=== PATIENT | female | born 1950 | race Caucasian/White ===

== ENCOUNTER 2019-05-03 03:10 | Emergency (ER) | payer MEDICARE, OTHER ==
--- NOTE | 2019-05-03 03:18 | ED Physician Documentation ---
<Marlin Rodriguez - Last Filed: 05/03/19 07:13> History of Present Illness - Stated complaint Stated Complaint: NAUSEA/DIZZY - History obtained from History obtained from: Patient, Family - History of Present Illness Timing: How many hours ago (3) - Additonal information Additional information: This is a 69-year-old woman who presents with her complaints that she went to bed around midnight and shortly thereafter developed violent vomiting about every 15 minutes. She was feeling dizzy but did not pass out. She is very minimal headache this started after the vomiting. She did not fall. She did not hit her head. She does not have diarrhea but said that her intestines feel "off". She had wine and some chicken salad that she had made in the morning about 2 hours before the onset of the symptoms. She has had this happen multiple times in the past most recent time being about 5 years ago. Nobody ever elucidated the reasoning for these episodes. They live in the [facility] and have a [place]. Review of Systems Constitutional: denies: Fever Eyes: reports: Reviewed and negative Ears: denies: Loss of hearing Nose: denies: Rhinorrhea / runny nose, Congestion Throat: denies: Sore throat Cardiac: denies: Palpitations Respiratory: denies: Dyspnea, Cough GI: reports: Nausea, Vomiting. denies: Abdominal Pain, Diarrhea : denies: Dysuria, Frequency Skin: denies: Rash Neurologic: reports: Headache. denies: Syncope, Confused, LOC PD PAST MEDICAL HISTORY - Present Medications Home Medications: Ambulatory Orders Medication Instructions Recorded Confirmed Ondansetron Odt [Zofran] 4 mg TL Q6H PRN #10 tablet 05/03/19 - Allergies Allergies/Adverse Reactions: Allergies Allergy/AdvReac Type Severity Reaction Status Date / Time codeine Allergy Nausea Verified 05/03/19 03:22 PD ED PE NORMAL - Vitals Vital signs reviewed: Yes - General General: Alert and oriented X 3, Other (Patient was actively vomiting) - HEENT HEENT: Atraumatic, PERRL, EOMI, Moist mucous membranes - Neck Neck: Supple, no meningeal sign, No adenopathy, No JVD - Cardiac Cardiac: RRR, No murmur - Respiratory Respiratory: No respiratory distress, Clear bilaterally - Abdomen Abdomen: Soft, Non tender, Non distended, Other (Hypoactive bowel tones) - Derm Derm: Normal color, Warm and dry, No rash - Extremities Extremities: No edema - Neuro Neuro: Alert and oriented X 3, manufacturing technologist 2-12 intact, Normal speech, Other (No neurological deficit) - Psych Psych: Normal mood, Normal affect Results - EKG (time done) 0333 Rate: Rate (enter#) Rhythm: NSR, Other (Frequent PACs) QRS: Poor R wave progression Ischemia: Normal ST segments Compare to prior EKG: Old EKG unavailable Computer interpretation: Disagree with computer PD MEDICAL DECISION MAKING - ED course Complexity details: reviewed results, re-evaluated patient, d/w patient, d/w family ED course: The patient was actively vomiting when she got here. She was given Zofran. She is still feeling nauseous following that so we gave her 25 of Phenergan IV. She still complained of some nausea to the nursing staff and was given Reglan 10 mg IV. When I went back into talk to her she is complaining more of a of an akathisia just feels really antsy and I think she is reacting to the Phenergan. Will medicate with Benadryl 25 mg IV. She is not really feeling dizzy. 0611: Patient got up and ambulated in the hallway and the is concerned because she is very unsteady. He said he had to hold onto the back of her pants quite tightly. It is unclear if this is a side effect from the medications but at this point with her not improving significantly and now she is telling me that she is dizzy, I elected to order CT of the brain. Patient is in agreement with this plan. She has not had any further vomiting. 0657: CT Is negative. Patient is still feeling little dizzy but has not had any further vomiting. Will consult with neurology at [facility]. 0713: Dr Cedeño, Neurology, at [facility] recommended a CT angiogram be done here. If there is vertebral or basilar occlusion contact them. Otherwise she could be admitted here for MRI tomorrow to rule out posterior stroke. Care will be turned over to Dr. Schumacher to follow-up on the CT angiogram a decision about admission. Departure - Departure Disposition: 01 Home, Self Care Clinical Impression: Gastroenteritis Instructions: ED Gastroenteritis Vs Food Poison Follow-Up: REMEDIOS ESCOBEDO MD [Primary Care Provider] - Prescriptions: Ondansetron Odt [Zofran] 4 mg TL Q6H PRN #10 tablet PRN Reason: Nausea / Vomiting <Meet Schumacher - Last Filed: 05/03/19 08:42> Results - Vitals Vitals: Vital Signs - 24 hr 05/03/19 05/03/19 05/03/19 03:14 03:31 03:55 Temperature 35.8 C L Heart Rate 146 H 99 89 Respiratory 14 20 Rate Blood Pressure 144/82 H 141/97 H O2 Saturation 98 97 96 05/03/19 05/03/19 05/03/19 04:24 06:08 06:32 Temperature 36.6 C Heart Rate 76 79 81 Respiratory 18 18 21 Rate Blood Pressure 148/85 H 120/74 114/69 O2 Saturation 96 97 97 Oxygen O2 Source Room air - Labs Labs: Laboratory Tests 05/03/19 05/03/19 05/03/19 03:26 03:26 03:26 WBC 6.3 RBC 4.45 Hgb 13.4 Hct 41.5 MCV 93.3 MCH 30.1 MCHC 32.3 RDW 13.2 Plt Count 180 MPV 11.3 H Neut # (Auto) 4.0 Lymph # (Auto) 1.5 Weston # (Auto) 0.5 Eos # (Auto) 0.2 Baso # (Auto) 0.1 Absolute Nucleated RBC 0.00 Nucleated RBC % 0.0 PT 12.1 INR 1.1 Sodium 143 Potassium 3.4 L Chloride 104 Carbon Dioxide 24 Anion Gap 15.0 H BUN 15 Creatinine 0.7 Estimated GFR (MDRD) 83 L Glucose 137 H Calcium 9.4 Total Bilirubin 0.8 AST 34 ALT 22 Alkaline Phosphatase 64 Troponin I Total Protein 7.7 Albumin 4.9 Globulin 2.8 Albumin/Globulin Ratio 1.8 Lipase 33 Urine Color Urine Clarity Urine pH Ur Specific Chestnut Urine Protein Urine Glucose (UA) Urine Ketones Urine Occult Blood Urine Nitrite Urine Bilirubin Urine Urobilinogen Ur Leukocyte Esterase Ur Microscopic Review Urine Culture Comments 05/03/19 05/03/19 03:26 04:20 WBC RBC Hgb Hct MCV MCH MCHC RDW Plt Count MPV Neut # (Auto) Lymph # (Auto) Weston # (Auto) Eos # (Auto) Baso # (Auto) Absolute Nucleated RBC Nucleated RBC % PT INR Sodium Potassium Chloride Carbon Dioxide Anion Gap BUN Creatinine Estimated GFR (MDRD) Glucose Calcium Total Bilirubin AST ALT Alkaline Phosphatase Troponin I < 0.04 Total Protein Albumin Globulin Albumin/Globulin Ratio Lipase Urine Color YELLOW Urine Clarity CLEAR Urine pH 7.0 Ur Specific Chestnut 1.010 Urine Protein NEGATIVE Urine Glucose (UA) 100 H Urine Ketones NEGATIVE Urine Occult Blood NEGATIVE Urine Nitrite NEGATIVE Urine Bilirubin NEGATIVE Urine Urobilinogen 0.2 (NORMAL) Ur Leukocyte Esterase NEGATIVE Ur Microscopic Review NOT INDICATED Urine Culture Comments NOT INDICATED PD MEDICAL DECISION MAKING - ED course ED course: CT angios of the head and neck are negative for large vessel occlusion and the patient's symptoms are resolved. She gives a history of having similar episodes previously with complete recovery. She did eat some chicken salad last night that she had prepared she had mayonnaise as a portion of the dressing and her did have a spoonful of the salad. She became violently ill consistent with staphylococcal food poisoning and her illness now appears resolved consistent with staphylococcal food poisoning. She has been hydrated here in the emergency department. At the time of my evaluation at 8:40 AM the patient is ambulating without difficulty and has no nausea or symptoms. I believe her episode is resolved. I do not believe she needs to be admitted to the hospital for further work-up. She will be discharged to follow-up with her primary care doctor in [place].
[2019-05-03] MEDS ORDERED: ONDANSETRON 4 MG/2 ML VIAL IVP STA (03:24)
[2019-05-03] MEDS ORDERED: SODIUM CHLORIDE 0.9% 1,000 ML IV ONE (03:25)
[2019-05-03 03:32] LABS: BASOPHILS # (AUTO) 0.1 10^3/uL (0.0-0.1); BASOPHILS % (AUTO) 1.3 %; EOSINOPHILS # (AUTO) 0.2 10^3/uL (0.0-0.7); EOSINOPHILS % (AUTO) 2.7 %; HGB - HEMOGLOBIN 13.4 g/dL (12.0-16.0); LYMPHOCYTES # (AUTO) 1.5 10^3/uL (1.5-3.5); LYMPHOCYTES % (AUTO) 24.3 %; MEAN CORPUSCULAR HEMOGLOBIN 30.1 pg (27.0-31.0); MEAN CORPUSCULAR HGB CONC 32.3 g/dL (32.0-36.0); MEAN CORPUSCULAR VOLUME 93.3 fL (81.0-99.0); MEAN PLATELET VOLUME 11.3 fL (7.9-10.8); MONOCYTES # (AUTO) 0.5 10^3/uL (0.0-1.0); MONOCYTES % (AUTO) 8.4 %; NEUTROPHILS % (AUTO) 63.1 %; PLT - PLATELET COUNT 180 10^3/uL (130-450); RED BLOOD COUNT 4.45 10^6/uL (4.20-5.40); RED CELL DISTRIBUTION WIDTH 13.2 % (12.0-15.0); WHITE BLOOD COUNT 6.3 x10^3/uL (4.8-10.8)
[2019-05-03 03:37] LABS: INR 1.1 (0.8-1.2); PT - PROTHROMBIN TIME 12.1 secs (9.9-12.6)
[2019-05-03 03:46] LABS: ALBUMIN 4.9 g/dL (3.2-5.5); ALBUMIN/GLOBULIN RATIO 1.8 (1.0-2.2); BILIRUBIN,TOTAL 0.8 mg/dL (0.2-1.0); CALCIUM 9.4 mg/dL (8.5-10.3); CREATININE 0.7 mg/dL (0.4-1.0); TOTAL PROTEIN 7.7 g/dL (6.7-8.2)
[2019-05-03] MEDS ORDERED: PROMETHAZINE INJ 25 MG in SODIUM CHLORIDE 0.9% 50 ML IV STA (04:23)
[2019-05-03] MEDS ORDERED: METOCLOPRAMIDE 10 MG/2 ML VIAL IVP STA (04:59)
[2019-05-03 05:07] LABS: BILIRUBIN,URINE NEGATIVE (NEGATIVE); CLARITY,URINE CLEAR (CLEAR); GLUCOSE, URINE (UA) 100 mg/dL (NEGATIVE); KETONES,URINE (UA) NEGATIVE (NEGATIVE); LEUKOCYTE ESTERASE, URINE NEGATIVE (NEGATIVE); NITRITE,URINE NEGATIVE (NEGATIVE); OCCULT BLOOD,URINE NEGATIVE (NEGATIVE); PROTEIN,URINE NEGATIVE (NEGATIVE); UROBILINOGEN,URINE 0.2 (NORMAL) E.U./dL (NORMAL)
[2019-05-03] MEDS ORDERED: diphenhydrAMINE INJ 50 MG/ML VIAL IVP STA (05:10)
--- NOTE | 2019-05-03 06:44 | CT Report ---
Reason: dizziness, unsteady, vomiting Procedure Date: 05/03/2019 Accession Number: [id number] / [id number] Procedure: CT - HEAD WO CPT Code: FULL RESULT: EXAM: CT HEAD EXAM DATE: 05/03/2019 06:33 AM. CLINICAL HISTORY: Dizziness, unsteady, vomiting. COMPARISON: None. TECHNIQUE: Multiaxial CT images were obtained from the foramen magnum to the vertex. Reformats: Sagittal and coronal. IV contrast: None. In accordance with CT protocol optimization, one or more of the following dose reduction techniques were utilized for this exam: automated exposure control, adjustment of mA and/or KV based on patient size, or use of iterative reconstructive technique. FINDINGS: Parenchyma: No intraparenchymal hemorrhage. No evidence of mass, midline shift, or CT findings of infarction. Cardona-white differentiation is distinct. Extraaxial Spaces: Normal for age. No subdural or epidural collections identified. Ventricles: Normal in size and position. Sinuses and Orbits: Imaged paranasal sinuses, orbits, and mastoids show no significant abnormality. Bones: No evidence of fracture or calvarial defect. Other: None. IMPRESSION: No acute or focal intracranial abnormality. RADIA
[2019-05-03] MEDS ORDERED: IOVERSOL 320 100 ML VIAL IVP ONE ×2 (07:27→07:53)
--- NOTE | 2019-05-03 08:07 | CT Report ---
Reason: L sided facial droop Procedure Date: 05/03/2019 Accession Number: [id number] / [id number] Procedure: CT - ANGIO HEAD W/WO CPT Code: FULL RESULT: EXAM: CT ANGIOGRAM HEAD. CT SCAN OF THE HEAD WITH CONTRAST. EXAM DATE: 05/03/2019 07:50 AM CLINICAL HISTORY: 6-year-old woman with left facial droop. COMPARISON: HEAD W/O 05/03/2019 6:23 AM NECK ANGIO 05/03/2019 7:39 AM. TECHNIQUE: - CT Scan Head: Using a multidetector scanner, axial images were acquired from the foramen magnum to the skull vertex following contrast administration. - CT Angiogram: Using a multidetector scanner, high-resolution axial images were acquired from the skull base through vertex following rapid infusion of intravenous contrast. Reformats: Multiplanar MIP reformats were reconstructed. Nascet criteria used for stenosis measurement. IV Contrast: OPTI 320 80ML. In accordance with CT protocol optimization, one or more of the following dose reduction techniques were utilized for this exam: automated exposure control, adjustment of mA and/or KV based on patient size, or use of iterative reconstructive technique. FINDINGS: CTA HEAD: RIGHT: - Visualized Internal Carotid: Patent without significant stenosis or aneurysm. There is trace atherosclerotic plaque along the siphon. - Anterior Cerebral: Patent without significant stenosis or aneurysm. - Middle Cerebral: Patent without significant stenosis or aneurysm. - Posterior Cerebral: Patent without significant stenosis or aneurysm. - Posterior Communicating: Not well seen. - Visualized Vertebral: Patent without significant stenosis or dissection. The PICA is visualized and is patent. LEFT: - Visualized Internal Carotid: Patent without significant stenosis or aneurysm. There is trace atherosclerotic plaque along the siphon. - Anterior Cerebral: Patent without significant stenosis or aneurysm. - Middle Cerebral: Patent without significant stenosis or aneurysm. - Posterior Cerebral: Patent without significant stenosis or aneurysm. - Posterior Communicating: Not well seen. - Visualized Vertebral: Patent without significant stenosis or dissection. The PICA is visualized and is patent. CENTRAL: - Anterior Communicating: Patent. No aneurysm. - Basilar: Patent without significant stenosis, dissection, or aneurysm. POSTCONTRAST HEAD: No abnormal enhancement. IMPRESSION: 1. Normal. No large vessel occlusion, significant vascular stenosis, or aneurysm. RADIA
--- NOTE | 2019-05-03 08:12 | CT Report ---
Reason: L sided facial droop, L neck pain Procedure Date: 05/03/2019 Accession Number: [id number] / [id number] Procedure: CT - ANGIO NECK W CPT Code: FULL RESULT: EXAM: CT ANGIOGRAM NECK EXAM DATE: 05/03/2019 07:50 AM. CLINICAL HISTORY: 69-year-old woman with left-sided facial droop and left neck pain. COMPARISON: HEAD W/O 05/03/2019 6:23 AM. TECHNIQUE: Routine axial helical imaging was performed from the skull base through the aortic arch. Reconstructions: Routine multiplanar 3D MIP reconstructions. IV Contrast: OPTI 320 80ML. Evaluation of arterial stenosis is based on a NASCET method of measurement. In accordance with CT protocol optimization, one or more of the following dose reduction techniques were utilized for this exam: automated exposure control, adjustment of mA and/or KV based on patient size, or use of iterative reconstructive technique. FINDINGS: RIGHT: - Common and Internal Carotid: Patent without signficant stenosis. No appreciable atherosclerotic plaque at the bifurcation. Stenosis by NASCET criteria: 0%. No evidence of dissection. The distal cervical ICA is tortuous and mildly dilated, most consistent with ectasia. - External Carotid: Unremarkable. - Vertebral: Patent without significant stenosis. No evidence of dissection. LEFT: - Common and Internal Carotid: Patent without signficant stenosis. No appreciable atherosclerotic plaque at the bifurcation. Stenosis by NASCET criteria: 0%. No evidence of dissection. The distal cervical ICA is tortuous and dilated and the lumen is irregular, most consistent with ectasia. - External Carotid: Unremarkable. - Vertebral: The origin is focally narrowed (approximately 50%). The remainder of the arteries patent without significant stenosis. No evidence of dissection. SOFT TISSUES AND BONES: Visualized soft tissues are unremarkable. Lung apices are clear. No evidence of acute fracture or malalignment of the cervical spine, but there are multilevel degenerative changes. IMPRESSION: 1. No significant vascular stenosis, atherosclerotic plaque, or dissection. 2. The distal cervical ICAs are tortuous and mildly dilated bilaterally, most consistent with ectasia. RADIA
[2019-05-03 10:02] VITALS: BP 126/72
== END 2019-05-03 09:15 | disposition home or self-care (01) ==
LOC: ED 03:10
DX: K52.9 Noninfective gastroenteritis and colitis, unspecified (principal); R42 Dizziness and giddiness; I49.1 Atrial premature depolarization
CPT/HCPCS: 36415; 70450; 70496; 70498; 80053; 81003; 83690; 84484; 85025; 85610; 93005; 96361; 96365; 96375; 99283; 99284; J1200; J2765; J7040; Q9967; 81001; 87086